=== PATIENT | male | born 1950 | race Caucasian/White ===

== ENCOUNTER 2017-08-24 10:48 | Emergency (ER) | payer MEDICARE ==
[~2017-08-24] VITALS: Ht 167.6 cm; Wt 89.0 kg
[~2017-08-24 10:48] MED LIST: ALPRAZOLAM0.25 MG PO; ALPRAZOLAM0.5 M1 PO; ALPRAZOLAM0.5 MG PO; ALTOPREV20 MG PO; AMLODIPINE10 MG PO; AMOXICILLIN500 MG PO; ASPIRIN325 MG OR; ATENOLOL100 MG PO; BAYER LOW81 MG PO; CRESTOR10 MG OR; CYCLOBENZAPR10 MG PO; DIOVAN320 MG OR; FENOFIBRATE54 MG PO; FOLIC ACID1 MG OR; FOLIC ACID1 MG PO; FUROSEMIDE20 MG PO; GEMFIBROZIL600 MG OR; GLYB/METFO5 MG/500 M OR; GLYB/METFOR1; GLYB/METFOR1 PO; GLYBURIDE/METFO1 TA1 PO; LASIX20 MG PO; LIPITOR40 MG PO; LISINOP/HCTZ1 TA2 PO; LOPID600 MG PO; MEDDOSEPAK PO; METAGLIP1 TA2 PO; MULT VITAMI1 PO; NIASPAN1000 ER OR; NITROSTAT0.4 MG SL; NORVASC10 MG OR; NORVASC10 MG PO; PERCOCET 10/31 COMBO PO; PLAVIX75 MG PO; TOPROL XL200 MG OR; TRAMADOL HCL50 MG PO
[2017-08-24 11:23] LABS: HEMATOCRIT 47.5 % (39.0-50.0); HEMOGLOBIN 16.4 g/dl (14.0-18.0); IMMATURE GRANULOCYTES 0.6 % (0.0-1.0); MEAN CELL VOLUME 92.1 fL CALC (80.0-100.0); MEAN CORPUSCULAR HGB 31.8 pG CALC (26.0-32.0); MEAN CORPUSCULAR HGB CONC 34.5 g/L CALC (32.0-36.0); NEUT# 10.48 thou/uL (1.82-7.42); RED BLOOD COUNT 5.16 mill/uL (4.70-6.10); RED CELL DISTRI WIDTH 13.3 % (11.5-15.5)
[2017-08-24 12:11] LABS: ALBUMIN 3.6 g/dL (3.2-5.0); ALKALINE PHOSPHATASE 106 u/l (38-126); ANION GAP 14 (6-22 (CALC)); BILIRUBIN, TOTAL 0.5 mg/dL (0.0-1.4); BUN 21 mg/dL (8-23); BUN/CREATININE RATIO 25 (12-20 (CALC)); CARBON DIOXIDE 35 mmol/l (22-30); CHLORIDE 91 mmol/l (95-108); CREATININE 0.8 mg/dL (0.7-1.3); GFR > 60 ML/MIN (>=60 (CALC)); GFR FOR AFR.AMER. > 60 ML/MIN (>=60 (CALC)); POTASSIUM 3.1 mmol/l (3.5-5.1); SGPT/ALT 36 u/l (11-66); SODIUM 137 mmol/l (137-146); TOTAL PROTEIN 6.2 g/dL (6.3-8.2)
[2017-08-24 12:15] LABS: SGOT/AST 68 u/l (19-48)
[2017-08-24 13:42] VITALS: BP 195/87
== END 2017-08-24 13:48 | disposition short-term general hospital (02) ==
LOC: ED 10:48
PROVIDERS: Family Medicine
DX: I21.4 Non-ST elevation (NSTEMI) myocardial infarction (principal); I10 Essential (primary) hypertension; F17.210 Nicotine dependence, cigarettes, uncomplicated; R42 Dizziness and giddiness; R61 Generalized hyperhidrosis; R53.1 Weakness; Z95.1 Presence of aortocoronary bypass graft; E11.649 Type 2 diabetes mellitus with hypoglycemia without coma; Z79.84 Long term (current) use of oral hypoglycemic drugs; K08.89 Other specified disorders of teeth and supporting structures